=== PATIENT | male | born 1975 | race Caucasian/White ===

== ENCOUNTER → 2024-04-18 06:32 | Day surgery (SDC) | payer BC, SELFPAY | LOC: GI 06:32 | PROVIDERS: ATTENDING PHYSICIAN Specialist | DX: Z12.11 Encounter for screening for malignant neoplasm of colon (principal); D12.4 Benign neoplasm of descending colon; D12.5 Benign neoplasm of sigmoid colon; K56.2 Volvulus; Z86.010 Personal history of colon polyps | CPT/HCPCS: 45385; 88305 ==